=== PATIENT | male | born 1950 | race Caucasian/White ===

== ENCOUNTER 2021-02-03 06:34 | Inpatient (IN) | payer MEDICARE, OTHER ==
[2021-02-03] MEDS ORDERED: Nitroglycerin 50 MG/250 ML BOT 0 ML ONE (08:05)
[2021-02-03] MEDS ORDERED: Heparin 10,000 UNITS/ 10 ML VIAL ONE ×2 (08:05→09:48)
[2021-02-03] MEDS ORDERED: Adenosine 6 MG/2 ML VIAL ONE (08:06)
[2021-02-03] MEDS ORDERED: Lidocaine 1% (PF) 30 ML VIAL ONE (08:07)
[2021-02-03] MEDS ORDERED: FLU VACC QS2021-22(65YR UP)/PF 240 MCG/0.7 ML SYRINGE IM ONE (08:15)
[2021-02-03] MEDS ORDERED: Midazolam HCl 2 mg/2 ml Vial ONE ×2 (08:35→08:58)
[2021-02-03] MEDS ORDERED: Fentanyl 100 MCG/2 ML VIAL ONE (08:35)
[2021-02-03] MEDS ORDERED: Protamine Sulfate 50 MG/5 ML VIAL ONE (09:57)
[2021-02-03] MEDS ORDERED: Clopidogrel Bisulfate 300 MG TAB ONE (10:12)
[2021-02-03] MEDS ORDERED: Aspirin 325 MG TAB ONE (10:13)
[2021-02-03] MEDS ORDERED: Zolpidem Tartrate 5 MG TAB PO PRN (10:51)
[2021-02-03] MEDS ORDERED: Mag-Al 1200 mg/1200 mg/30 ML UDCUP PO PRN (10:51)
[2021-02-03] MEDS ORDERED: Milk Of Magnesia 30 ML UDCUP PO PRN (10:51)
[2021-02-03] MEDS ORDERED: Acetaminophen/Codeine 30-300mg Tablet PO PRN (10:51)
[2021-02-03] MEDS ORDERED: cloNIDine 0.1 MG TAB PO PRN (10:51)
[2021-02-03] MEDS ORDERED: Sodium Chloride 0.9% 1,000 ML IV SCH (11:00)
[2021-02-03] MEDS: Metoprolol Tartrate 25 MG TAB PO SCH (20:04)
[2021-02-04 04:12] VITALS: BMI 23.7
[2021-02-04 04:18] LABS: #Basophils 0.1 10x3/uL (0.0-0.2); #Eosinphils 0.1 10x3/uL (0.0-0.5); #Monocytes 1.2 10x3/uL (0.0-1.1); #Neutrophils 7.6 10x3/uL (1.5-8.4); %Basophils 0.5 % (0.0-2.0); %Eosinophils 0.8 % (0.0-6.0); %Lymphocytes 9.9 % (18.0-47.0); %Monocytes 11.7 % (0.0-10.0); %Neutrophils 76.4 % (40.0-75.0); Hemoglobin 11.5 g/dL (13.5-17.5); Mean Corpuscular HGB CONC 34.1 g/dL (32.0-36.0); Mean Corpuscular Hemoglobin 32.3 pg (27.0-33.0); Mean Corpuscular Volume 94.7 fl (81.2-95.1); Mean Platelet Volume 10.2 fl (7.4-10.4); Platelet Count 234 10x3/uL (150-450); RBC Distribution Width 13.4 % (11.5-14.5); Red Blood Cell (RBC) Count 3.56 10x6/uL (4.32-5.72); White Blood Cell (WBC) Count 9.9 10x3/uL (3.5-10.5)
[2021-02-04 04:30] LABS: ALT (SGPT) 11 U/L (8-55); AST (SGOT) 14 U/L (5-34); Alkaline Phosphatase 34 U/L (40-110); Anion Gap 14 mmol/L (10-20); BUN (Urea Nitrogen) 16 mg/dL (8.4-25.7); Bilirubin, Total 0.5 mg/dL (0.2-1.2); Calc. Creatinine Clearance 82 mL/min (70-130); Carbon Dioxide 20 mmol/L (23-31); Chloride 108 mmol/L (98-107); Globulin 2.7 g/dL (2.4-3.5); Glucose 105 mg/dL (83-110); Potassium 4.5 mmol/L (3.5-5.1); Protein, Total 6.7 g/dL (5.8-8.1); Sodium 137 mmol/L (136-145)
[2021-02-04] MEDS: Metoprolol Tartrate 25 MG TAB PO SCH (08:40)
[2021-02-04] MEDS ORDERED: Aspirin Chewable 81 MG TAB PO SCH (09:00)
[2021-02-04 10:22] VITALS: BP 110/76; TEMP 98.6
== END 2021-02-04 13:15 | disposition home or self-care (01) | DRG 269 ==
LOC: CSHSDC 06:34 → CSHICU 11:11 → CSHIMCU 11:15
PROVIDERS: ADMIT Internal Medicine Cardiovascular Disease; ATTEND Internal Medicine Cardiovascular Disease
PROC: 04V03DZ Restriction of Abdominal Aorta with Intraluminal Device, Percutaneous Approach (ICD-10-PCS; principal; 2021-02-03)
DX: I71.4 Abdominal aortic aneurysm, without rupture (principal); I10 Essential (primary) hypertension; E78.5 Hyperlipidemia, unspecified; I25.10 Atherosclerotic heart disease of native coronary artery without angina pectoris; E03.9 Hypothyroidism, unspecified; I48.91 Unspecified atrial fibrillation; Z95.0 Presence of cardiac pacemaker; Z95.5 Presence of coronary angioplasty implant and graft; Z96.641 Presence of right artificial hip joint; I49.5 Sick sinus syndrome; Z79.01 Long term (current) use of anticoagulants; Z79.82 Long term (current) use of aspirin; Z79.890 Hormone replacement therapy; Z79.891 Long term (current) use of opiate analgesic; Z79.899 Other long term (current) drug therapy
CPT/HCPCS: 34705; 34713; 71046; 75625; 80048; 80053; 85025; 85027; 85347; 85610; 85730; 93005; 93010; 99152; 99153; C1758; C1760; J0153; J1644; J2001; J2250; J2720; J3010; J7050; U0003; U0005

== ENCOUNTER 2021-06-19 10:49 | Emergency (ER) | payer MEDICARE, OTHER ==
[2021-06-19] MEDS ORDERED: Fluorescein Opthalmic Strip ONE ×2 (11:12→12:27)
[2021-06-19] MEDS ORDERED: Tetracaine 0.5% PF 4 ML BOT ONE ×2 (11:13→12:27)
== END 2021-06-19 12:57 | disposition home or self-care (01) ==
LOC: CSHERS 10:49
DX: T15.02XA Foreign body in cornea, left eye, initial encounter (principal); E03.9 Hypothyroidism, unspecified; K21.9 Gastro-esophageal reflux disease without esophagitis
CPT/HCPCS: 65205